=== PATIENT | male | born 1965 | race African-American/Black ===

== ENCOUNTER 2020-07-06 06:43 | Day surgery (SDC) | payer OTHER ==
[~2020-07-06] VITALS: Ht 175.3 cm; Wt 122.7 kg
[2020-07-06] MEDS ORDERED: MUCINEX DM ER1 EAC1 PO (08:27)
[2020-07-06] MEDS ORDERED: VITAMIN D325 MC1 PO (08:28)
[2020-07-06] MEDS ORDERED: XALATAN 0.0052.5 ML EACH EYE (08:28)
[2020-07-06] MEDS ORDERED: PREDNISONE5 MG PO (08:28)
[2020-07-06] MEDS ORDERED: HYTRIN5 MG PO (08:28)
[2020-07-06] MEDS ORDERED: ADVAIR 250-501 EAC1 INH (08:28)
[2020-07-06] MEDS ORDERED: OS-CAL500 MG PO (08:29)
[2020-07-06] MEDS ORDERED: COZAAR50 MG PO (08:29)
[2020-07-06] MEDS ORDERED: DORZOLAMIDE-TI1 EACH EACH EYE (08:29)
[2020-07-06] MEDS ORDERED: OMEPRAZOLE20 M1 PO (08:30)
[2020-07-06] MEDS ORDERED: ALPHAGAN P15 ML EACH EYE (08:30)
[2020-07-06] MEDS ORDERED: FLOMAX0.4 MG PO (08:30)
[2020-07-06] MEDS ORDERED: TIMOPTIC 0.5 % O5 ML EACH EYE (08:30)
[2020-07-06] MEDS ORDERED: CLARITIN 10 MG10 MG PO (08:31)
[2020-07-06] MEDS ORDERED: FUROSEMIDE40 MG PO (08:31)
[2020-07-06] MEDS ORDERED: K-DUR20 MEQ PO (08:31)
[2020-07-06 08:32] VITALS: Ht 175.3 cm; Wt 122.7 kg
[2020-07-06 08:38] LABS: HEMATOCRIT 34.1 % (42.0-54.0); HEMOGLOBIN 10.6 g/dL (13.5-17.5); MCH 29.7 pg (26.0-34.0); MCHC 31.1 g/dL (31.0-37.0); MCV 95.5 fL (80.0-100.0); MEAN PLATELET VOLUME 9.1 fL (7.4-10.4); RBC 3.57 10x6/uL (4.20-6.10); RDW 13.9 % (11.5-14.5); WBC 8.6 10x3/uL (4.8-10.8)
--- NOTE | 2020-07-06 11:50 | NUR ---
1100 IV REMOVED AND INSTRUCTIONS GIVEN, 1105 D/C HOME
--- NOTE | 2020-07-07 11:46 | OP ---
PATIENT NAME: CONNIE JHAVERI MEDICAL RECORD: [id number] :67 LOCATION:D.OPS ADMISSION DATE: SURGEON: BEHZAD SU MD DATE OF OPERATION: 07/06/2020 PREOPERATIVE DIAGNOSES: 1. Intractable gastroesophageal reflux. 2. Volume gastroesophageal reflux. 3. Dysphagia. POSTOPERATIVE DIAGNOSES: 1. Intractable gastroesophageal reflux. 2. Volume gastroesophageal reflux. 3. Dysphagia. 4. Normal appearing esophagus, normal appearing stomach, and normal appearing duodenum. 5. No significant hiatal hernia. PROCEDURES: 1. Esophagogastroduodenoscopy with antral biopsies to rule out H. pylori. 2. Esophageal dilation with jxoetpm-zan-frqupthi balloon to 60-Romanian. SURGEON: Behzad Su MD MULTIFOCAL BUTTON INSPECTOR: None. BLOOD LOSS: Minimal. ANESTHESIA: IV sedation. COMPLICATIONS: None. The risks, possible complications, alternatives to the procedure were explained to the patient. He elects to proceed. ENDOSCOPIC COURSE: The patient was conveyed to the endoscopy suite electively on 07/06/2020. IV sedation was induced by the anesthesia staff. A bite block was inserted. A gastroscope was inserted into the mouth. It was advanced easily into the hypopharynx. The esophagus was easily intubated as were the stomach and duodenum. Upon withdrawal, retroflexed and angulus views were obtained. Antral biopsies were obtained to rule out H. pylori. I then withdrew into the cardia of the stomach. A yjekwby-wlg-fzhykadj balloon was advanced. I then sequentially dilated the entire length of the esophagus to 60-Romanian. The gastroscope and balloon dilator were then removed. I readvanced the gastroscope. There had been no false passage or perforation. The gastroscope was then withdrawn under direct vision. I would recommend the patient to continue on PPI therapy for now. I would not recommend any operative antireflux procedure. If the patient's reflux worsens and it is felt that he is having microaspiration, which is causing his lung function to worsen, the patient would likely be a very good candidate for a transoral incisionless fundoplication. TRANSINT:[id number] Voice Confirmation ID: [id number] DOCUMENT ID: [id number] OPERATIVE REPORT [id number] CONNIE JHAVERI BEHZAD SU MD at 1146 CC: VALENTINA GOODRICH MD and ESTEFANY LEMUS MD [id number] DICTATION DATE: 07/06/20 1029 [place] MAN: 07/06/20 1043 DEP SDC 07/06/20 [id number] [place] [address]
--- NOTE | 2020-07-07 11:47 | HP ---
PATIENT: CONNIE JHAVERI MEDICAL RECORD: [id number] ACCOUNT: [id number] LOCATION:[facility] : 67 ADMISSION DATE: 07/06/20 PCP: No PCP HISTORY AND PHYSICAL EXAMINATION HISTORY: The patient is here for upper endoscopy. He is also having some dysphagia and would like to undergo esophageal dilation. The patient has severe gastroesophageal reflux disease. He is a volume refluxer and refluxes up into his mouth at night. The patient is on steroids due to sarcoidosis. He has been on long-term PPI use. He is on numerous medications. The patient had COVID several months ago. PAST MEDICAL AND SURGICAL HISTORY: History of COVID, history of cough syncope, history of enlarged asymmetric prostate, obesity, gastroesophageal reflux, gynecomastia, hypertension, obstructive sleep apnea on CPAP. He is being done off site due to high ASA number. MEDICATIONS AT THE ASSISTED: Extensive and are listed. ALLERGIES: No known drug allergies. PHYSICAL EXAMINATION: GENERAL: The patient appears acutely ill, also appears chronically ill. VITAL SIGNS: Reviewed. EARS: External ears appear normal. EYES: Extraocular movements are intact. NECK: Trachea is midline. CHEST: No intercostal retractions. PULMONARY: Mildly labored. No stridor. IMPRESSION: 1. Gastroesophageal reflux. 2. Dysphagia. PLAN: EGD with esophageal dilation. TRANSINT:[id number] Voice Confirmation ID: [id number] DOCUMENT ID: [id number] BEHZAD SU MD at 1147 CC: VALENTINA GOODRICH MD and ESTEFANY LEMUS MD [id number] DICTATION DATE: 07/06/20 0947 HAND COOPER HELPER: 07/06/20 0959 [facility] 07/06/20 [facility] [address] [place] [address]
== END 2020-07-06 11:05 | disposition home or self-care (01) ==
LOC: D.OPS 06:43
PROVIDERS: Anesthesiology; ATTEND Surgery
DX: K21.9 Gastro-esophageal reflux disease without esophagitis (principal); R13.10 Dysphagia, unspecified; I10 Essential (primary) hypertension; N62 Hypertrophy of breast; Z86.16 Personal history of COVID-19